=== PATIENT | female | born 1980 | race Caucasian/White ===

== ENCOUNTER 2023-02-21 08:46 | Outpatient (CLI) | payer OTHER, SELFPAY ==
--- NOTE | 2023-02-21 08:58 | ECG_ITS ---
Measurements Intervals [place] Rate: 54 P: 42 TX: 168 QRS: 36 QRSD: 108 T: 21 QT: 418 QTc: 398 Interpretive Statements SINUS BRADYCARDIA LOW QRS VOLTAGE IN PRECORDIAL LEADS INCOMPLETE RIGHT BUNDLE BRANCH BLOCK CANNOT RULE OUT SEPTAL INFARCT, AGE INDETERMINATE ABNORMAL ECG NO PREVIOUS ECG AVAILABLE FOR COMPARISON Electronically Signed On 02-21-2023 9:12:17 CDT by Rayray Herrera D.O.
[2023-02-21 09:30] LABS: Hematocrit 44.1 % (37.0-47.0); Hemoglobin 14.7 g/dL (12.0-15.0)
== END 2023-02-21 08:47 | disposition home or self-care (01) ==
LOC: ANHSURGERY 08:51
PROVIDERS: Anesthesiology; PCP Internal Medicine; Visit Provider Surgery Plastic and Reconstructive Surgery
DX: Z41.1 Encounter for cosmetic surgery (principal); I45.10 Unspecified right bundle-branch block
CPT/HCPCS: 36415; 85014; 85018; 93005

== ENCOUNTER 2023-02-28 01:46 | Day surgery (SDC) | payer OTHER, SELFPAY ==
[2023-02-16 11:15] VITALS: BMI 28.1
--- NOTE | 2023-02-16 11:19 | PC.NURSE ---
Report to the Outpatient Waiting Room, entrance under the green pavilion located off [facility], at time 6:00 on date 02/28/23. Planned Procedure Time: 7:30. Time changes happen often and if your time is changed the preop area will call you the afternoon before. - You and your visitor will be asked to self-screen and do not enter if you have any COVID symptoms. - A mask is optional within the hospital at this time. Patients may have clear liquids (water, carbonated beverages, clear teas, apple juice) until 3 hours prior to surgery (4:30) with a maximum of 20 ounces. - No food from midnight until time of surgery Take the following medications with a SIP of water the morning of surgery: CONTROL DO NOT STOP ANY OF YOUR OTHER PRESCRIPTION MEDICATIONS PRIOR TO SURGERY ?EXCEPT THE FOLLOWING Medications to discontinue per physician: VITAMINS Date to take last dose: 02/24/23 Please no make-up, nail uzbek, hairspray, perfume, deodorant, or body powder the day of surgery. No jewelry (including any body piercings) or valuables the day of surgery, leave them at home. Please take a shower or bath the night before, or the morning of, surgery with an antibacterial soap. Wear comfortable, loose fitting clothing. - Jewelry must be removed prior to entering the operating room. Rings and piercings that are not removed may be cut off. - The hospital will not accept responsibility for valuables. - Please leave all valuables, including medications, at home the day of surgery. If you are going home after surgery, a licensed delivery driver must drive you home. - NO public transportation without another adult if you receive anesthesia. - We recommend that an adult stay with you for 24 hours following discharge. - We also recommend that you do not drive, make important decision, drink alcoholic beverages, or take any drugs that were not prescribed by your health care provider for at least 24 hours after your discharge time. Follow any additional instructions given to you from your surgeon. If you or anyone in your household have experienced Covid symptoms in the past week, please notify your surgeon or the nurse liaison at the phone number below for possible testing. Telephone instructions given to PT - TAMMY FOSTER and asked if any additional questions and then verbalized understanding. Patient advised to call surgeon office or pre surgery nurse liaison [phone] if any additional questions.
[2023-02-28] VITALS (11 sets, daily range): BP systolic 111–128; BP diastolic 73–89; PULSE 50–71; RESP 12–20; TEMP 36.7–36.8; O2SAT 96–100
[2023-02-28] MEDS: LACTATED RINGERS 1,000 ML 30 ML IV CONT ×2 (06:30→12:27)
[2023-02-28 06:58] LABS: Urine Cotinine NEGATIVE
[2023-02-28] MEDS: ACETAMINOPHEN 500 MG TABLET 1000 MG PO (07:00)
--- NOTE | 2023-02-28 07:12 | WPDHPUPDATE1 ---
History and Physical Update Update Date/Time: 02/28/23 07:12 History and Physical has been reviewed, including an updated exam of the patient. There are NO changes in the patient's condition. Risks, benefits, and alternatives have been discussed and questions answered. Patient agrees to proceed with procedure.
--- NOTE | 2023-02-28 07:12 | W.PM.PROC2 ---
Procedure Note - Detailed Date of Procedure 02/28/23 Pre-op Diagnosis micromastia, skin laxity, umb hernia Post-op Diagnosis Same Procedure Performed 1. Progressive tension abdominoplasty with suction lipectomy 2. Bilateral augmentation mammaplasty Surgeon Loi Cantu MD Anesthesia General Findings Bilateral Ulises Rubalcava SoftTouch 485cc Right - REF# [id number] SN [id number] Left - REF# [id number] SN [id number] Tissue removed: 1145.5 grams Lipoaspirate: 1550 cc Description of Procedure They are here today for the above. Previously and again today the risks, benefits, alternatives were discussed in extensive detail. I wanted them to be very realistic about the risks involved as well as expectations. We discussed aftercare and what to monitor for. I was very upfront about the risks of wound breakdown leading to loss of skin, open wounds, and need for additional procedures with permanent abdominal deformity. We discussed DVT/PE risks and management. Made sure answered all of their questions to their satisfaction today and consent was obtained. They were marked in the preoperative holding area with their verification. The patient was taken to the operating room placed supine on the operating table. Anesthesia was provided by anesthesiology. A Benz catheter was started. A surgical time-out was taken. We cleansed the skin and 1% lidocaine and 0.25% Marcaine with epinephrine was used anesthetize as a field block. She was prepped and draped in a standard sterile 360 degree fashion. Breast Tegaderm nipple Dye were placed. A 15 blade used to make an incision along the inframammary fold. Dissection was continued at 45 degree angle until the chest wall as identified. I incised the pectoralis major along its inferior border and completely released the inferior border leaving the medial border intact. I created a subpectoral pocket in the appropriate dimensions based on our preoperative planning for the implant. I then copiously irrigated with saline solution and verified a strict hemostasis. Next the use a triple antibiotic and Betadine containing solution to irrigate the pocket. I washed my gloves with the triple antibiotic and Betadine solution. We washed the implant immediately upon opening it with this solution and only opened it when we needed it. I used implant funnel and no-touch technique. The implant was introduced into the pocket using the funnel. Having verified positioning of the implant this was closed using 2-0 PDS followed by 3-0 Monocryl in a running subcuticular 4-0 Monocryl followed by tissue glue. Abdomen I placed the patient in a flexed position to verify the upper and lower markings would reach. I then placed supine. A thorough abdominal examination was completed. Stab incisions were made and tumescent solution infiltrated. Once adequate time was allowed for hemostasis a 5mm basket and 3mm multi hole cannula were utilized to complete suction lipectomy based on S.A.F.E. technique in multiple planes and passes. There were turned to bilateral lateral decubitus position with care taken to protect them for injury during this process. Suction lipectomy continued to result based on pre-operative planning, intra-operative observation, and rolling pinch test which were in full agreement. A 10 blade was used to make the upper incision. I continued dissection down to the level of fascia. Elevated just what was necessary for repair of the diastasis. I then again flexed the bed to verify the upper skin flap would reach the lower markings without tension. Once verified I placed her supine once again and a 10 blade used to make the lower incision. I elevated up to level the umbilicus and left the umbilicus intact on a well-vascularized stalk. The intervening tissue was removed. A 2 mm blunt cannula with 0.5% bupivicaine was injected deep to the fascia bilaterally. I plicated the diastasis recti using 0 PDO stratafix barbed
--- NOTE | 2023-02-28 07:14 | PM.IMHP ---
H&P: HPI History of Present Illness Date/Time: 02/28/23 07:14 Chief Complaint: umbilical hernia Narrative: 42 yo woman presents for umbilical hernia repair. She denies any changes since last seen in office. Review of Systems Review of Systems: All systems reviewed & are unremarkable except as noted in HPI and below Constitutional: Constitutional: Denies chills, Denies fever(s), Denies headache(s) and Denies weight loss Eyes: Eyes: Denies change in vision ENT: Denies dizziness, Denies headache(s), Denies neck mass and Denies throat swelling Cardiovascular: Cardiovascular: Denies chest pain, Denies lightheadedness and Denies dyspnea Respiratory: Respiratory: Denies cough, Denies dyspnea and Denies wheezing Gastrointestinal: Gastrointestinal: Denies abdominal pain, Denies change in bowel habits, Denies nausea and Denies vomiting Genitourinary: Genitourinary: Denies hematuria and Denies dysuria Musculoskeletal: Musculoskeletal: Reports as per HPI Integumentary/Breasts: Skin/Breast: Reports as per HPI Neurologic: Denies dizziness and Denies headache(s) Allergic/Immunologic: Allergic/Immunologic: Denies throat swelling and Denies wheezing PMFSH Surgical History Surgical History Hx laparoscopic cholecystectomy Jul 2022 at [facility] of dilation and curettage D&C x2 2012 & 2013 at [facility] of tonsillectomy [facility] 1999 Family History Family History Other Heart disease Lung cancer Ovarian cancer Social History Social History Smoking status: Never smoker Second hand tobacco smoke exposure: No Alcohol intake: current Drinks per week: 4 Substance use: never Substance use type: does not use Living arrangements: with family Spiritual care concerns: No Meds Home Medications and Allergies Home Medications Medication Instructions Recorded Confirmed Type norethindrone 1 mg-ethinyl 1 tablet PO DAILY 10/26/22 02/16/23 History estradiol 10 mcg (24)-iron 10 mcg(2) tablet (Lo Loestrin Fe) cetirizine 10 mg capsule (Zyrtec) 10 mg PO DAILY PRN Allergy Symptoms 11/03/22 02/16/23 History yjkdlyfn-syc-molht acid 200 1 tablet PO DAILY 11/03/22 02/16/23 History mcg-collagen, hydrolyzed 25 mg chew tablet (Women's Multivitamin with Collagen) Allergies Allergy/AdvReac Type Severity Reaction Status Date / Time tetracycline Allergy Unknown Rash Verified 02/16/23 11:14 meloxicam Allergy Rash Verified 02/16/23 11:14 Exam Const: General: no acute distress and alert Orientation/consciousness: patient oriented x3 HENMT: Head: normocephalic and atraumatic Ears: hearing grossly normal bilaterally Face/Nose/Sinus: Normal nares present Mouth: Yes Normal oral and palatal mucosa present Eyes: Periorbital: periorbital findings normal Sclera: sclerae normal EOM: EOMs intact bilaterally Neck: Neck: normal visual inspection, no lymphadenopathy and trachea midline Chest: Chest palpation & inspection: normal inspection of the chest Resp: Effort & Inspection: normal respiratory effort Auscultation: clear to auscultation bilaterally Cardio: Jugular venous distension: no JVD Rate: regular rate Rhythm: regular rhythm Heart sounds: S1 normal heart sound present and S2 normal heart sound present Peripheral pulses: Peripheral pulses 2+ throughout GI: Inspection: normal to inspection GI Palp: Yes Soft to palpation, No Tenderness to palpation present (GI), No Guarding due to palpation present (GI), Yes Hernia present (1cm umbilical hernia) and No Rebound tenderness present Percussion: Yes normal to percussion Auscultation: normal bowel sounds : General: Yes no CVA tenderness Back/Spine/Pelvis: Back: no CVA tenderness Neuro: General: patient oriented x3, no focal motor deficits and
--- NOTE | 2023-02-28 07:15 | WPDHPUPDATE1 ---
History and Physical Update Update Date/Time: 02/28/23 07:15 History and Physical has been reviewed, including an updated exam of the patient. There are NO changes in the patient's condition. Risks, benefits, and alternatives have been discussed and questions answered. Patient agrees to proceed with procedure.
--- NOTE | 2023-02-28 07:25 | WPDANESEPPF ---
Anes - Initial Pre Proc Eval Procedure: Operation Date: 02/28/23 07:30 Proposed Procedures p Abdominoplasty with Liposuction - Loi Cantu MD s Bilateral Breast Augmentation - Loi Cantu MD s Umbilical Hernia Repair - Jono French DO Date/Time: 02/28/23 07:25 Surgeon: Loi Cantu MD Pre Op Diagnosis: micromastia, skin laxity, umb hernia Patient Data Age: 42 Gender: F Height: 1.7 m Weight: 80 kg Last Vital Signs Temp 98.2 F 02/28/23 07:18 Pulse 71 02/28/23 07:18 Resp 20 02/28/23 07:18 BP 113/78 02/28/23 07:18 Pulse Ox 100 02/28/23 07:18 O2 Del Method Room Air 02/28/23 07:18 Allergies Allergy/AdvReac Type Severity Reaction Status Date / Time tetracycline Allergy Unknown Rash Verified 02/28/23 07:16 meloxicam Allergy Rash Verified 02/28/23 07:16 Home Medications Medication Instructions Recorded Confirmed Type norethindrone 1 mg-ethinyl 1 tablet PO DAILY 10/26/22 02/28/23 History estradiol 10 mcg (24)-iron 10 mcg(2) tablet (Lo Loestrin Fe) cetirizine 10 mg capsule (Zyrtec) 10 mg PO DAILY PRN Allergy Symptoms 11/03/22 02/28/23 History tsvsctai-hbb-ozzmh acid 200 1 tablet PO DAILY 11/03/22 02/28/23 History mcg-collagen, hydrolyzed 25 mg chew tablet (Women's Multivitamin with Collagen) Laboratory Tests 02/28/23 06:20 Cotinine Negative Patient hx anesthesia problems: none Family hx anesthesia problems: none Results Review: All pre-operative results and documents have been reviewed as part of the pre-operative evaluation. [facility] Surgical History Surgical History Hx laparoscopic cholecystectomy Jul 2022 at [facility] of dilation and curettage D&C x2 2012 & 2013 at [facility] of tonsillectomy [facility] 1999 Family History Family History Other Heart disease Lung cancer Ovarian cancer Social History Social History Smoking status: Never smoker Second hand tobacco smoke exposure: No Alcohol intake: current Drinks per week: 4 Substance use: never Substance use type: does not use Living arrangements: with family Spiritual care concerns: No Anes - Eval Final PreProcedure Day of Procedure 02/28/23 07:25 Patient weight: overweight Heart: regular rate and rhythm Lungs: clear to auscultation Airway: Mallampati scale class II Neurological: alert and oriented Last oral intake: >/= 8 hours ASA classification: II Emergent: no Anesthetic plan: proceed Anesthesia type and monitoring: general ETT and standard monitoring Results Review: All pre-operative results and documents have been reviewed as part of the pre-operative evaluation. Informed Consent: The patient's anesthetic plan and its attendant risks and benefits were discussed with the patient/family/POA. Questions were solicited and answers provided to the satisfaction of the patient/family/POA.
[2023-02-28] MEDS: ceFAZolin 2 GM/D5W 50 ML 2 GM/50 ML BAG IVPB (07:30)
--- NOTE | 2023-02-28 10:36 | W.PM.PROC2 ---
Procedure Note - Detailed Date of Procedure 02/28/23 Pre-op Diagnosis micromastia, skin laxity, umb hernia Post-op Diagnosis Same (1 cm umbilical hernia) Procedure Performed Open 1 cm umbilical hernia repair Surgeon Jono French, DO Anesthesia General Indications This is a 42-year-old woman who presented with a recent finding of a small umbilical hernia. She was seen in evaluation for abdominal plasty and an umbilical hernia was noted on exam. She was then referred to surgery for discussions of repair coordinated with abdominal plasty procedure. Discussions were made with the patient about treatment options and decision was made to proceed with open umbilical hernia repair with possible mesh. Findings Open umbilical hernia repair was performed. The patient was found to have a 1 cm reducible umbilical hernia. No other abnormalities were noted. The umbilical hernia was repaired using 0 Ethibond simple interrupted sutures. Description of Procedure Procedure as well as risks, benefits, and alternatives discussed with the patient. Written consent was obtained and placed in chart prior to procedure. Patient was brought back to surgical suite. She was placed supine on operating table. Time-out was done to confirm patient and procedure. She was then intubated by the anesthesia department. Her abdomen was then prepped and draped in sterile fashion using chlorhexidine prep. Dr. Cantu initiated the surgery and I was then called in once the skin flap had been created for the abdominal plasty. There was a small rim of umbilical skin around the umbilical stalk. The remainder of the fascia circumferentially was already cleared by Plastic surgery. A small incision was made in the linea alba just inferior to the umbilicus using electrocautery. This was carried out to the level of the hernia defect. The preperitoneal fat was then reduced and the fascial edges were clearly visible. The umbilical hernia was repaired with 0 Ethibond simple interrupted sutures. Once these 2 sutures were placed from underneath. I then closed the linea alba just inferior to the umbilicus using 0 Ethibond simple interrupted sutures. The repair was inspected and appeared secure. No other abnormalities were noted. The procedure was then turned back over to Dr. Cantu. Please refer to his operative note for his details. Estimated Blood Loss 0 Complications No immediate complications Condition Stable Disposition Observation [facility] Billing Surgery - Charge Forward: Surgery Billing
[2023-02-28] MEDS: ceFAZolin SODIUM 1 GM VIAL 2 GM IV PUSH (12:08)
[2023-02-28] MEDS: fentaNYL CITRATE INJ (*CRX) 100 MCG/2 ML VIAL 25 MCG IV PUSH ×4 (12:57→13:29)
[2023-02-28] MEDS: oxyCODONE HCL (*CRX) 5 MG TAB IR PO (14:08)
== END 2023-02-28 15:10 | disposition home or self-care (01) ==
PROVIDERS: Surgery; PCP Internal Medicine; Visit Provider Surgery Plastic and Reconstructive Surgery
PROC: (CPT 15877; principal; 2023-02-28 07:30)
PROC: (CPT 15877; 2023-02-28 07:30)
PROC: (CPT 49591; 2023-02-28 07:30)
DX: Z41.1 Encounter for cosmetic surgery (principal); K42.9 Umbilical hernia without obstruction or gangrene; N64.82 Hypoplasia of breast; L57.4 Cutis laxa senilis; Z79.899 Other long term (current) drug therapy
CPT/HCPCS: 49591; 15877; 15830; 15847; 19325; 80307; A9270; J0171; J0330; J0690; J1100; J1170; J1580; J2250; J2371; J2405; J2704; J3010; J7120